=== PATIENT | male | born 1960 | race Caucasian/White ===

== ENCOUNTER 2020-07-14 06:29 | Inpatient (IN) ==
--- NOTE | 2020-06-29 07:49 | ANES ---
Anesthesia Pre Procedure Eval HOME MEDICATIONS cetirizine 10 mg tablet 10 mg PO DAILY PRN #30 tab 02/18/18 [Last Taken Unknown] topiramate 50 mg tablet 75 mg PO BID #270 tab 03/02/20 [Last Taken Unknown] sertraline 100 mg tablet 100 mg PO DAILY #90 tab 03/16/20 [Last Taken Unknown] celecoxib 200 mg capsule 200 mg PO BID #60 cap 05/18/20 [Last Taken Unknown] lisinopril 10 mg tablet 10 mg PO DAILY tab 06/28/20 [Last Taken Unknown] metformin 500 mg tablet 1,000 mg PO DAILY tab 06/28/20 [Last Taken Unknown] Allergies/Adverse Reactions: Allergies Allergy/AdvReac Type Severity Reaction Status Date / Time No Known Allergies Allergy Verified 06/28/20 11:33 - Planned Procedure Planned Procedure: Left Arthroplasty Total Hip Medication List Reviewed:: Yes Allergies Verified: Yes Medical History (Last Reviewed 06/29/20 @ 07:45 by Angel Buitrago CRNA) COVID-19 vaccine administered (Acute) Encounter for annual physical exam (Acute) Encounter for vision screening (Acute) R: L: B: Correction: Y Essential hypertension (Chronic) Anxiety associated with depression (Chronic) Joint stiffness (Chronic) Joint pain (Chronic) MULTIPLE JOINTS Migratory polyarthritis (Chronic) Screening for depression (Acute) PHQ 9: 7 Has received influenza vaccination in current influenza season (Acute) Onset Date: 06/28/18 Anxiety and depression Onset Date: Unknown Dislocation of right patella Onset Date: ~1975 Hyperlipidemia Onset Date: ~1997 IFG (impaired fasting glucose) Onset Date: ~2004 Knee pain, left Onset Date: ~1993 Migraine Onset Date: ~2005 Seasonal allergies Onset Date: ~2011 Viral meningitis Onset Date: ~04/2005 History of stress test Onset Date: ~2016 2--treadmill first then pharmacological Surgical History (Last Reviewed 06/29/20 @ 07:46 by Angel Buitrago CRNA) History of adenoidectomy Onset Date: ~1969 History of arthroscopy of left knee Onset Date: ~2006 also 2004 History of colonoscopy Onset Date: ~08/2015 History of hammer toe correction Onset Date: 11/16/16 Left 2 and 3--Dr. Sue [facility] History of meniscectomy of left knee Onset Date: ~03/2007- left knee 2003- partial lateral left knee History of removal of cyst Onset Date: ~2001 History of shoulder surgery Onset Date: ~2004 Right shoulder. Severe impingement syndrome and rotator cuff tear History of tonsillectomy Onset Date: ~1969 History of vasectomy Onset Date: ~1989 Hx laparoscopic cholecystectomy Onset Date: 04/27/19 Dr Mata Family History (Last Reviewed 06/29/20 @ 07:46 by Angel Buitrago CRNA) Father , @ 80 yo Alzheimers disease Diabetes Myocardial infarction 4 vessel CABG Hypertension Cancer basal cell Mother Hypertension Diabetes A-fib CHF (congestive heart failure) Kidney disease Sister Cancer, Onset Age: 30 melanomas Pituitary tumor - Family Anesthesia History Family History:: no untoward family reactions to anesthesia, no familial bleeding tendencies, no family history of clotting disorders, no family history of premature - Airway/Neck/Teeth Within Normal Limits:: Yes Teeth Condition: intact Denture Type: Perm crown/bridge Neck Exam: full range of motion Mallampatti Score: 3 Thyromental (T-M) distance: > 6 cm Mandibulo Hyoid distance: > 3 cm - Respiratory Respiratory Physical: lungs clear Smoking Status: Never smoker Sleep Apnea currently treated: No Sleep Apnea by current assessment: No - Although MP apature limited - Cardiovascular Cardiac History: hypertension Tolerate Activity: Fair Heart Sounds: S1 & S2, Regular - Gastrointestinal NPO since: 2400 except BP meds - Anesthesia Assessment and Plan ASA Class: PS, II Anesthesia Type Plan: Spinal
[~2020-07-14 06:29] MED LIST: MORPHINE SULFATE 15 MG TABLET.SA PO PRN; ROPIVACAINE/CLONIDIN/KETOROLAC 50 ML SYRINGE IJ PRN; TRANEXAMIC ACID 1,000 MG in NORMAL SALINE 100 ML IV PRN; ceFAZolin SODIUM 1 GM VIAL IV PRN
[2020-07-14] MEDS ORDERED: PROPOFOL VIAL IV ONE (06:58)
[2020-07-14] MEDS ORDERED: LIDOCAINE HCL 20 ML VIAL ONE (06:58)
[2020-07-14] MEDS ORDERED: BUPIVACAINE HCL/PF 10 ML VIAL ONE (06:58)
[2020-07-14] MEDS ORDERED: MIDAZOLAM HCL/PF 5 MG/ML VIAL ONE (07:01)
[2020-07-14] MEDS ORDERED: ROPIVACAINE/CLONIDIN/KETOROLAC 50 ML SYRINGE IJ ONE (07:02)
[2020-07-14] MEDS ORDERED: ISOPROPYL ALCOHOL 480 APPL BTL MC ONE (07:02)
[2020-07-14] MEDS ORDERED: ceFAZolin SODIUM 1 GM VIAL ONE (07:02)
[2020-07-14] MEDS: RINGER'S SOLUTION,LACTATED 1,000 ML IV PRN ×3 (07:10→09:55)
[2020-07-14] MEDS ORDERED: MAG HYDROX/ALUMINUM HYD/SIMETH 30 ML UDC PO PRN (09:18)
[2020-07-14] MEDS ORDERED: DEXTROSE 5%-LACTATED RINGERS 1,000 ML IV PRN (09:18)
[2020-07-14] MEDS ORDERED: ONDANSETRON HCL/PF 2 MG/ML VIAL IV PRN (09:18)
[2020-07-14] MEDS ORDERED: MORPHINE SULFATE 2 MG/ML DISP.SYRIN IV PRN (09:18)
[2020-07-14] MEDS ORDERED: MAGNESIUM HYDROXIDE 30 ML UDC PO PRN (09:18)
[2020-07-14] MEDS ORDERED: ZOLPIDEM TARTRATE 5 MG TABLET PO PRN (09:18)
[2020-07-14] MEDS ORDERED: ACETAMINOPHEN 500 MG TABLET PO PRN (09:18)
[2020-07-14] MEDS ORDERED: diphenhydrAMINE HCL 50 MG/ML VIAL IV PRN (09:18)
[2020-07-14] MEDS ORDERED: LORATADINE 10 MG TABLET PO PRN (09:21)
--- NOTE | 2020-07-14 09:24 | OR ---
Operative Report - Dictated Report Narrative: Date: 07/14/2020 Preoperative diagnosis: Left hip degenerative joint disease. Postoperative diagnosis: Left hip degenerative joint disease. Procedure: Left total hip arthroplasty. Surgeon: Antonino Barroso M.D. Hypercil Core Transformer Assembler: Joel Christina PA-C (provided an essential set of skilled, educated and assisted with transfer, positioning, prepping, draping, manipulation, traction, irrigation, suturing, and placement of dressings all of which cannot be performed by the available surgical crew) Anesthesia: Spinal and local periarticular joint injection. Complications: None Specimens: Bone. Estimated blood loss: 100 milliliters. Retained implants: Depuy [place] size 5 femoral stem high offset. Size 56 millimeter outside diameter 3-hole [place] Gription acetabular cup. 56 millimeter outside by 36 millimeter inside diameter highly cross-linked acetabular liner. 36 millimeter diameter +5 millimeter ceramic femoral head. Cancellous 6.5mm screw 30 millimeter length Indications: Mr. Rice is a 60-year-old gentleman who has had longstanding left hip pain and arthrosis. This patient was followed in my clinic for period of time with significant complaints of left hip pain consistent with arthritic changes. He failed conservative measures including but not limited to activity modification, passage of time, medications, and other conservative measures. Patient wished to proceed with surgical treatment. The risks, benefits, and alternatives were discussed in clinic. The risks of , blood clots, bleeding, infection, nerve/tendon blood vessel/ injury, malposition of components, dislocation and/or instability of joint, intraoperative fracture, postoperative limited range of motion, persistent pain, failure of components, and need for additional procedures. Patient wished to proceed. Consent was obtained after answering all questions. Procedure: After marking the correct extremity on the floor, the patient was taken to the operating room. A timeout was performed. IV antibiotics consisting of Ancef were administered prior to the procedure. A spinal anesthetic was induced by anesthesia. A Lake catheter was inserted. The patient was then transitioned to a lateral position on a well-padded pegboard. An axillary roll was placed. The head was in neutral position. The non- operative down leg was well-padded with SCD and ALBERTO hose in place. The arms were supported and padded to protect from any undue pressure on the bony prominences and nerves. A well-padded anterior and posterior pelvic and chest posts were secured in order to maintain a stable position of the pelvis. This was placed so that the pelvis was perpendicular to the floor. The body was in line with the pelvis. Once it was felt that we had protected all the bony prominences and the patient was well secured with a safety belt as well, the leg was pre-scrubbed with alcohol, prepped and draped in a standard sterile fashion. A standard anterior lateral hip incision was marked out over the greater trochanter. Ioban drapes were then placed. The skin incision was then made. Sharp dissection with a scalpel utilizing cautery for hemostasis was carried out down to the gluteus and iliotibial band fascia. This was split in line with the skin incision. The greater trochanter bursa was excised. The anterior and posterior margins of the abductor tendon were identified. The anterior 1/2-1/3 of the tendon was tagged and reflected off the greater trochanter leaving a sleeve of tendon for repair at the completion of the case. This exposed the underlying hip joint capsule. An inverted T-type capsulotomy was made extending this up to the brim of the acetabulum. Using Homans to assist with elevation of the soft tissues off the anterior, superior, and inferior aspects of the femoral neck, the hip was then placed in a figure 4 position and the femoral head was dislocated. With the leg in an externally rotated and adducted position, the cutting flag was utilized in order to gloria for a standard femoral neck cut approximately a fingerbreadth above the level of the lesser trochanter. This was done with reference to pre-operative films and overall alignment. This was done while protecting the surrounding soft tissues with Homans. The femoral head was then removed and sized for guidance on preparation of the acetabulum. It was noted that there was loss of articular cartilage on both the femoral head and weightbearing portions of the acetabulum. We then returned the leg to the table and turned our attention to the acetabulum. While protecting the surrounding soft tissues, the labrum and remaining tissue in the fovea were excised using a scalpel and cautery. A series of reamers up to size 56 millimeter were utilized to prepare the acetabulum. The final reamer had good purchase and exposed the bleeding subchondral bone. The acetabulum was then thoroughly irrigated ensuring that all bony and cartilaginous materials were removed, and the final acetabular shell was impacted into place. This was placed in approximately 45 degrees of abduction and 20 degrees of anteversion utilizing the outrigger and body axis for alignment. This had a good press fit. 1 6.5mm cancellous screw was placed in the superior posterior quadrant of the acetabulum. The shell was then thoroughly irrigated and the final polyethylene was impacted into place ensuring that it seated completely. This was then protected with a sponge while we returned our attention to the femur. With the leg in a figure 4 position, utilizing Homans for soft tissue protection, a box cutting osteotome, followed by Charnley awl, followed by serial reamers and broaches were utilized in order to prepare the femur. It was found that a size 5 broach gave good axial and rotational stability. The calcar reamer was utilized in order to clean up the cut edges. The proximal femur was visualized to ensure that there were no signs of fracture. A series of heads and necks were trialed. It was found that a high offset neck and a + 5 femoral head gave good overall stability. There was minimal longitudinal instability. With the leg in the position of sleep, the femoral head was well covered. Hip range of motion was able to reach full extension and external rotation to greater than 75 degrees prior to impingement along the posterior acetabulum. The hip was able to be flexed to greater than 90 degrees with internal rotation greater than 60 degrees prior to anterior impingement. The limb lengths were near equal based on comparison to the contralateral side and the prior placed limb length stitch. At this point it was felt these were the appropriately sized femoral components as well as neck and femoral head. The trial implants were removed. The femur was thoroughly irrigated. The final implants were impacted into place, and the hip was reduced. After ensuring that there was no damage to the proximal femur, the standard periarticular joint injection of ropivacaine, Toradol, and epinephrine were injected into the joint capsule and surrounding soft tissues. Anesthesia then administered intravenous tranexamic acid. The capsule was repaired with a single interrupted #1 Vicryl. The abductor tendon was repaired to the greater trochanter utilizing #5 Ethibond through drill holes. This was oversewn with #1 Vicryl. The fascia was closed with interrupted #1 Vicryl and #1 Stratafix barbed suture. The wounds were thoroughly irrigated as we closed in layers. The deep and subcutaneous fat layers were closed with 0 and 3-0 Vicryl respectively. The subcutaneous tissue was closed with a running 3-0 Vicryl and the skin frankie. All sponge, needle, blade, and instrument counts were correct prior to closing the wounds. Sterile dressings consisting of xeroform, 4 x 4's, and tape were applied. The patient was awoken and transferred to her hospital bed and then to the postanesthesia care unit in stable condition. Postoperative condition: The plan is to admit to the medical/surgical inpatient floor postoperatively. There will be a projected 1 to 3 day hospital stay. Postoperatively 24 hours of IV antibiotics, pain control, physical therapy, occupational therapy, and medical comanagement will be utilized. Patient will be weightbearing as tolerated with anterior hip precautions. Postoperative films will be obtained in the recovery room.
[2020-07-14] MEDS: KETOROLAC TROMETHAMINE 15 MG/ML VIAL IV SCH ×3 (10:43→20:41)
[2020-07-14] MEDS: ceFAZolin SODIUM 1 GM in DEXTROSE 5 % IN WATER 100 ML IV SCH ×6 (11:37→23:42)
--- NOTE | 2020-07-14 12:24 | ANES ---
Post Anesthesia Discharge - Transfer of Care Transfer of Care handoff given to nurse: Yes - Discharge from PACU Discharge from PACU when meets criteria: Yes
--- NOTE | 2020-07-14 12:24 | ANES ---
Post Anesthesia Assessment - Vital Signs Vitals: Last Vital Signs Temp 35.8 C L 07/14/20 11:30 Pulse 70 07/14/20 11:30 Resp 16 07/14/20 11:30 BP 115/63 07/14/20 11:30 Pulse Ox 99 07/14/20 11:30 Airway Patency: Normal - Mental Status Level Of Consciousness: Awake - Pain Level Pain Score: 0 - N/V Assessment Nausea/Vomiting Presence: None Dehydration:: No
[2020-07-14] MEDS ORDERED: NORMAL SALINE 1,000 ML IV ONE (14:00)
[2020-07-14] MEDS: oxyCODONE HCL/ACETAMINOPHEN 1 TAB TABLET PO PRN ×2 (17:01→22:14)
[2020-07-14] MEDS: MORPHINE SULFATE 15 MG TABLET.SA PO SCH (20:12)
[2020-07-14] MEDS: TOPIRAMATE 50 MG TABLET PO SCH (20:13)
[2020-07-14] MEDS ORDERED: SENNOSIDES/DOCUSATE SODIUM 1 TAB TABLET PO SCH (21:00)
[2020-07-15] MEDS: KETOROLAC TROMETHAMINE 15 MG/ML VIAL IV SCH ×2 (03:04→09:06)
[2020-07-15] MEDS: oxyCODONE HCL/ACETAMINOPHEN 1 TAB TABLET PO PRN ×4 (03:08→16:03)
[2020-07-15 06:18] LABS: Hematocrit 40.9 % (42.0-52.0); Mean Corpuscular Hgb Conc 31.8 g/dl (32-36); Mean Platelet Volume 9.2 fl (8-11.3); Platelet Count 193 K/mm3 (150-450); Red Blood Count 4.65 M/mm3 (4.7-6.0); Red Cell Distribution Width 14.6 % (11.5-14.0)
[2020-07-15 06:27] LABS: Anion Gap 9.5 mmol/L (6.8-13.8); BUN/Creatinine Ratio 14.6 (9.0-21.6); Blood Urea Nitrogen 18 mg/dL (6-23); Calcium * 8.3 mg/dL (7.9-10.9); Carbon Dioxide 28.8 mmol/L (24-32.6); Chloride 107 mmol/L (97-106); Glucose * 135 mg/dL (70-110); Potassium 4.3 mmol/L (3.4-4.6); Sodium 141 mmol/L (132-142)
[2020-07-15] MEDS ORDERED: ENOXAPARIN SODIUM 40 MG/0.4 ML SYRG SC SCH (08:19)
[2020-07-15] MEDS ORDERED: LISINOPRIL 10 MG TABLET PO SCH (09:00)
[2020-07-15] MEDS ORDERED: SERTRALINE HCL 100 MG TABLET PO SCH (09:00)
[2020-07-15] MEDS: TOPIRAMATE 50 MG TABLET PO SCH (09:04)
[2020-07-15] MEDS: MORPHINE SULFATE 15 MG TABLET.SA PO SCH (09:04)
--- NOTE | 2020-07-15 10:12 | DS ---
(1) Status post left hip replacement Problem: Acute (2) Anxiety associated with depression Problem: Chronic (3) Diabetes mellitus type 2, controlled, without complications Problem: Chronic Qualifiers: (4) Essential hypertension Problem: Chronic (5) Migratory polyarthritis Problem: Chronic Hospital Course: Mr. Rice was admitted to the floor after undergoing left total hip arthroplasty. Tolerated this well. Was admitted to the floor postoperatively for 24 hours of IV antibiotics, pain control, medical comanagement, and occupati onal and physical therapy. OT and PT were consulted to assist with activities of daily living and ambulation. Was made weightbearing as tolerated with anterior hip precautions. Pain was initially controlled with IV regimen. This was transitioned to oral once tolerating a by mouth intake. Was resumed on home diet and medications. A Lake catheter was inserted in the operating room which was discontinued by postoperative day 1. Lovenox, SCDs, and ALBERTO hose were utilized for DVT prophylaxis. Vital signs remained stable to the hospital course. Labs were obtained which showed a final hemoglobin of 13 grams. BMP was reviewed and was stable. Physical examination throughout the hospital course showed an extremity that had sensation that was intact to light touch, palpable pulses, a benign wound, motor intact to the toes, ankle, and knee. Once an oral pain regimen was tolerated and physical therapy goals were met, it was felt that they were stable for discharge to home. Instructions: Continue with weightbearing as tolerated and anterior hip precautions. Do not bathe or soak the wound. Keep the wound clean and dry and cover with dry gauze and tape. Change every 2-3 days as needed if there is any drainage. Cover wound while showering. Continue with physical therapy. Resume home diet. Report any fever over 101.5 Fahrenheit, uncontrolled pain, increased drainage, foul odor of drainage, new or increased calf pain or shortness of breath, or any other significant complaints. A 325mg daily aspirin will be started after finishing anticoagulation if not allergic. Continue with ALBERTO hose on the operative extremity until instructed otherwise. No driving until instructed otherwise. Follow up in approximately 2-3 weeks. Procedures Performed: see notes below List Procedures: Left total hip arthroplasty Results and Findings: Lab Pending Results 07/15/20 06:15: WBC 9.0, RBC 4.65 L, Hgb 13.0 L, Hct 40.9 L, MCV 88.0, MCH 28.0, MCHC 31.8 L, RDW 14.6 H, Plt Count 193, MPV 9.2 07/15/20 06:15: Sodium 141, Plasma Sodium 142, Potassium 4.3, Chloride 107 H, Carbon Dioxide 28.8, Anion Gap 9.5, BUN 18, Creatinine 1.23, Est GFR (Non-Af Amer) 64, BUN/Creatinine Ratio 14.6, Random Glucose 135 H, Calcium 8.3 Disposition: Home self-care Condition: Good Discharge Activity: Weight bearing, Other - Anterior hip precautions no active abduction Discharge Diet: Consistent carbs Referrals: Guerita Strong MD [Primary Care Provider] - Additional Patient Instructions (free text): Follow up Physical Therapy at [facility] outpatient rehab on SaturdayJuly 18 at 11:00am. Follow up [facility] Orthopedic office appointment on July 28 at 9:45am. Prescriptions (Any new or edited meds): Enoxaparin Sodium [Lovenox] 40 mg SC Q24H #7 disp.syrin Transmission Status: Pending to [facility] Morphine Sulfate [Ms Contin] 15 mg PO Q12H #10 tablet.sa Transmission Status: Sent to [facility] oxyCODONE HCL/ACETAMINOPHEN [Percocet 5 MG/325 MG] 1 - 2 tab PO Q4H PRN #50 tab PRN Reason: Moderate Pain (Pain Scale 4-6) Transmission Status: Sent to [facility] Sennosides/Docusate Sodium [Senokot-S] 2 tab PO HS #60 tab Transmission Status: Pending to [facility] Complete Home Medications List: Complete Home Medication List: cetirizine 10 mg tablet 10 mg PO DAILY PRN #30 tab 02/18/18 topiramate 50 mg tablet 75 mg PO BID #270 tab 03/02/20 sertraline 100 mg tablet 100 mg PO DAILY #90 tab 03/16/20 celecoxib 200 mg capsule 200 mg PO BID #60 cap 05/18/20 metformin 500 mg tablet 1,000 mg PO DAILY tab 06/28/20 lisinopril 10 mg tablet 10 mg PO DAILY #90 tab 06/29/20 Enoxaparin Sodium [Lovenox] 40 mg SC Q24H #7 disp.syrin 07/15/20 Morphine Sulfate [Ms Contin] 15 mg PO Q12H #10 tablet.sa 07/15/20 Sennosides/Docusate Sodium [Senokot-S] 2 tab PO HS #60 tab 07/15/20 oxyCODONE HCL/ACETAMINOPHEN [Percocet 5 MG/325 MG] 1 - 2 tab PO Q4H PRN #50 tab 07/15/20 Amb Orders for Discharge: PT Evaluation and Treatment* Facility: [facility], Location: Rehabilitation Services
[2020-07-15 16:50] VITALS: BP 124/66
== END 2020-07-15 17:15 | disposition home or self-care (01) | DRG 470 ==
LOC: MS 06:29
PROVIDERS: ADMIT Orthopaedic Surgery; ATTEND Orthopaedic Surgery

== ENCOUNTER 2020-10-31 07:22 | Inpatient (IN) ==
[~2020-10-31 07:22] MED LIST changes: -TRANEXAMIC ACID 1,000 MG in NORMAL SALINE 100 ML IV PRN; +TRANEXAMIC ACID IN NACL,ISO-OS 1,000 MG/100 ML BAG IV PRN
[2020-10-31] MEDS: RINGER'S SOLUTION,LACTATED 1,000 ML IV PRN ×3 (07:51→10:45)
[2020-10-31] MEDS ORDERED: BUPIVACAINE HCL/EPINEPHRINE 50 ML VIAL IJ ONE (09:00)
[2020-10-31] MEDS ORDERED: MIDAZOLAM HCL/PF 5 MG/ML VIAL ONE (09:01)
[2020-10-31] MEDS ORDERED: PROPOFOL VIAL IV ONE (09:01)
[2020-10-31] MEDS ORDERED: BUPIVACAINE HCL/PF 10 ML VIAL ONE (09:02)
--- NOTE | 2020-10-31 09:21 | ANES ---
Anesthesia Pre Procedure Eval Vitals/Labs: Last Vital Signs Temp 36.7 C 10/31/20 07:30 Pulse 80 10/31/20 07:30 Resp 14 10/31/20 07:30 BP 139/75 10/31/20 07:30 Pulse Ox 97 10/31/20 07:30 HOME MEDICATIONS cetirizine 10 mg tablet 10 mg PO DAILY PRN #30 tab 02/18/18 [Last Taken Unknown] topiramate 50 mg tablet 75 mg PO BID #270 tab 03/02/20 [Last Taken 07/13/20] lisinopril 10 mg tablet 10 mg PO DAILY #90 tab 06/29/20 [Last Taken 07/13/20] metformin 500 mg tablet 1,000 mg PO DAILY #180 tab 09/12/20 [Last Taken Unknown] sertraline 100 mg tablet 100 mg PO DAILY #90 tab 09/12/20 [Last Taken Unknown] Allergies/Adverse Reactions: Allergies Allergy/AdvReac Type Severity Reaction Status Date / Time No Known Allergies Allergy Verified 10/31/20 07:53 - Planned Procedure Planned Procedure: Arthroplasty LT Total Knee Medication List Reviewed:: Yes Allergies Verified: Yes Medical History (Last Reviewed 10/31/20 @ 09:20 by Michele Lee CRNA) COVID-19 vaccine administered (Acute) Encounter for annual physical exam (Acute) Encounter for vision screening (Acute) R: L: B: Correction: Y Essential hypertension (Chronic) Anxiety associated with depression (Chronic) Joint stiffness (Chronic) Joint pain (Chronic) MULTIPLE JOINTS Migratory polyarthritis (Chronic) Screening for depression (Acute) PHQ 9: 7 Has received influenza vaccination in current influenza season (Acute) Onset Date: 06/28/18 Anxiety and depression Onset Date: Unknown Dislocation of right patella Onset Date: ~1975 Hyperlipidemia Onset Date: ~1997 IFG (impaired fasting glucose) Onset Date: ~2004 Knee pain, left Onset Date: ~1993 Migraine Onset Date: ~2005 Seasonal allergies Onset Date: ~2011 Viral meningitis Onset Date: ~04/2005 Wears contact lenses History of stress test Onset Date: ~2016 2--treadmill first then pharmacological Surgical History (Last Reviewed 10/31/20 @ 09:20 by Michele Lee CRNA) Hx of total hip arthroplasty Onset Date: ~07/14/20 Procedure: Left total hip arthroplasty. 07-14-20 Dr. Barroso History of adenoidectomy Onset Date: ~1969 History of arthroscopy of left knee Onset Date: ~2006 also 2004 History of colonoscopy Onset Date: ~08/2015 History of hammer toe correction Onset Date: 11/16/16 Left 2 and 3--Dr. Sue [facility] History of meniscectomy of left knee Onset Date: ~03/2007- left knee 2003- partial lateral left knee History of removal of cyst Onset Date: ~2001 neck History of shoulder surgery Onset Date: ~2004 Right shoulder. Severe impingement syndrome and rotator cuff tear History of tonsillectomy Onset Date: ~1969 History of vasectomy Onset Date: ~1989 Hx laparoscopic cholecystectomy Onset Date: 04/27/19 Dr Mata Family History (Last Reviewed 10/31/20 @ 09:20 by Michele Lee CRNA) Father , @ 80 yo Diabetes Alzheimers disease Myocardial infarction 4 vessel CABG Cancer basal cell Hypertension Mother Diabetes CHF (congestive heart failure) A-fib Kidney disease Hypertension Sister Pituitary tumor Cancer, Onset Age: 30 melanomas and thyroid - Family Anesthesia History Family History:: no untoward family reactions to anesthesia - Airway/Neck/Teeth Within Normal Limits:: Yes Teeth Condition: intact Neck Exam: full range of motion Mallampatti Score: 2 Thyromental (T-M) distance: > 6 cm Mandibulo Hyoid distance: > 3 cm - Respiratory Respiratory Physical: lungs clear Smoking Status: Never smoker Sleep Apnea currently treated: No Sleep Apnea by current assessment: No - Cardiovascular Cardiac History: hypertension Tolerate Activity: Fair Heart Sounds: S1 & S2, Regular - Gastrointestinal NPO since: mn - Anesthesia Assessment and Plan ASA Class: PS, II Anesthesia Type Plan: Spinal - adductor canal block Planned difficult intubation/equipment available: No
[2020-10-31] MEDS ORDERED: ROPIVACAINE/CLONIDIN/KETOROLAC 50 ML SYRINGE IJ ONE (09:45)
[2020-10-31] MEDS ORDERED: ceFAZolin SODIUM 1 GM VIAL ONE (09:45)
[2020-10-31] MEDS ORDERED: ONDANSETRON HCL/PF 2 MG/ML VIAL IV PRN (11:11)
[2020-10-31] MEDS ORDERED: MAG HYDROX/ALUMINUM HYD/SIMETH 30 ML UDC PO PRN (11:11)
[2020-10-31] MEDS ORDERED: MAGNESIUM HYDROXIDE 30 ML UDC PO PRN (11:11)
[2020-10-31] MEDS ORDERED: ACETAMINOPHEN 500 MG TABLET PO PRN (11:11)
[2020-10-31] MEDS ORDERED: MORPHINE SULFATE 2 MG/ML DISP.SYRIN IV PRN (11:11)
[2020-10-31] MEDS ORDERED: RINGER'S SOLUTION,LACTATED 1,000 ML IV PRN (11:11)
[2020-10-31] MEDS ORDERED: ZOLPIDEM TARTRATE 5 MG TABLET PO PRN (11:11)
--- NOTE | 2020-10-31 11:11 | OR ---
Operative Report - Dictated Report Narrative: Date: 10/31/2020 Preoperative diagnosis: Left knee degenerative joint disease. Postoperative diagnosis: Left knee degenerative joint disease. Procedure: Left total knee arthroplasty. Surgeon: Antonino Barroso M.D. Automotive Quality Manager: August Eaton PA-C (provided and essential set of skilled, educated hands that assisted with transfer, positioning, prepping, draping, manipulation, retraction, placement of jigs, injection, insertion of implants, irrigation, closure wounds, and dressings all of which could not be performed by the available surgical crew) Anesthesia: Spinal with regional block and local periarticular joint injection. Complications: None Specimens: Bone. Estimated blood loss: Minimal. Tourniquet time: 90 minutes at 325 millimeters of mercury. Retained implants: Depuy Attune size 7 left lugged cemented posterior stabilized femoral component. Size 7 fixed-bearing cemented tibial platform. 7 by 5 millimeter posterior stabilized cross-linked tibial insert. 41 millimeter medialized patella button. Indications: Mr. Rice is a 60-year-old gentleman who has had longstanding left knee pain and arthrosis. This patient was followed in my clinic for period of time with significant complaints of left knee pain consistent with arthritic changes. He had failed conservative measures including, but not limited to, activity modification, passage of time, medications, and other conservative measures. Patient wished to proceed with surgical treatment. The risks, benefits, and alternatives were discussed in clinic. The risks of , blood clots, bleeding, infection, nerve/tendon blood vessel/ injury, malposition of components, intraoperative fracture, postoperative limited range of motion, persistent pain, failure of components, and need for additional procedures. Patient wished to proceed consent was obtained after answering all questions. Procedure: After marking the correct extremity on the floor, the patient was taken to the operating room. A timeout was performed. IV antibiotics consisting of Ancef were administered prior to the procedure. A regional followed by spinal anesthetic was induced by anesthesia, per my request, on the operative table with all bony prominences well-padded. Lake catheter was placed, and a bump was placed under the operative side buttock. SCDs and ALBERTO hose were utilized on the nonoperative leg. A well-padded tourniquet was applied to the operative thigh. The operative leg was then pre-scrubbed with alcohol, prepped, and draped in a standard sterile fashion. After exsanguinating the extremity with an Esmarch bandage, the tourniquet was inflated. After marking out the anterior knee for standard incision centered over the patella, the skin was incised and dissected down to the joint retinaculum. The joint retinaculum was marked out as well as the horizontal axis of the patella, and a standard medial parapatellar arthrotomy was then made. The most proximal aspect of the quadriceps tendon and the patella tendon insertion were protected from release. A partial synovectomy was performed as well as a resection of the infrapatellar fat pad. The distal femoral fat pad proximal to the trochlea was also resected using cautery. The soft tissues were elevated off the medial aspect of the proximal tibia using a Pickering elevator ensuring that we did not transect the medial collateral ligament. Upon initial evaluation range of motion was approximately 0 degrees to 130 degrees of flexion. There were signs of advanced arthrosis in the lateral and patellofemoral greater than medial joint spaces. There were large marginal osteophytes which were removed with a rongeur. The knee was hyperflexed and the patella was tucked laterally. Protecting the surrounding soft tissues with Homans, an entry drill was placed down the femoral canal using Whitesides line for guidance into the entry point. The intramedullary femoral alignment zachary was utilized in order to cut the distal femur in 5 degrees of valgus resecting 10 millimeters of bone. Next the distal femur was sized to a size 7. A posterior referencing guide was utilized to place the distal femoral cutting block in 3 degrees of external rotation. This was pinned into place. The rotation was confirmed both visually and based on anatomic landmarks. The 4 in 1 cutting jig of the appropriate size was utilized in order to make all bony cuts. The toma wing was used to ensure no notching. Retractors were utilized in order to protect surrounding soft tissues. This cut did not result in any excessive notching. We then cut the box centered over the distal femur. This allowed for resection of the anterior and posterior cruciate ligaments. I then turned my attention to the preparation of the tibia. Using an extra medullary tibial alignment zachary, 6 millimeters of bone was resected off the medial articular surface. This was made perpendicular to the mechanical axis of the joint with the alignment zachary centered over the ankle mortise. The alignment zachary was checked and was noted to be parallel to the mechanical axis, centered over the medial one third of the tibial tubercle, paralleling the anterior surface of the tibia. We then turned our attention to the remaining meniscus and soft tissues. These were removed while protecting the surrounding ligaments and soft tissues. The marginal osteophytes off the anterior, posterior, medial, lateral aspects of the femur and tibia were removed. The tibia was sized out to a size 7. Next the tibia was drilled and punched in an externally rotated position. Next the trial femur and a series of tibial inserts were utilized in order to allow for full extension and maximal flexion. It was found that a 5 millimeter insert gave the best range of motion and stability at multiple flexion points as well as at full extension there was less than 2 mm of gapping both medially and laterally. There is minimal anterior translation with the knee at 90 degrees of flexion and no signs of being able to dislocate the knee. The patella was then prepared. The initial thickness was 26 millimeters. This was reamed down to 16 millimeters parallel to the anterior surface of the patella. It was sized out to a size 41 medialized patella button. This was then drilled and trialed. Without any medial restraint the patella tracked appropriately and did not sublux or dislocate. At this point, it was felt these were the appropriate sized implants, and all trials were removed. The standard periarticular joint injection consisting of ropivacaine, Toradol, and epinephrine were injected into the periarticular joint tissues. The bony surfaces were thoroughly irrigated with a pulsatile-suction saline irrigation device. A bone plug from the prior resected anterior chamfer cut was placed into the drill hole at the distal femur. The bony surfaces were then dried in preparation for placement of the implants. The cement was vacuum mixed per the coal conveyor operator's instructions. The cement was placed on the dry bony surfaces and posterior aspect of the implants. The implants were impacted into place, removing all extruded cement. At this point anesthesia administered tranexamic acid per protocol intravenously. The knee was placed in extension with axial loading with the trial insert while the cement cured. Once the cement cured, all remaining extruded cement was removed. The knee was placed through a range of motion with the trial insert to ensure appropriate range of motion and stability. Final range of motion was approximately 0 to 130 degrees. The knee was again thoroughly irrigated with pulsatile saline lavage. The final polyethylene insert was then impacted into place ensuring no retained soft tissues. The remaining periarticular joint injection was injected. A medium Hemovac drain was placed exiting superior laterally. The knee was then placed over a triangle and the arthrotomy was closed with interrupted #1 Vicryl after thoroughly irrigating the joint. The deep and subcutaneous tissues were closed with interrupted 0 and 3-0 Vicryl respectively. Skin was closed with a running subcutaneous 3-0 Monocryl and Prineo Dermabond dressing. 4 x 4's, Sof-Rol, and a full leg Troy wrap were applied. All sponge, needle, blade, and instrument counts were correct prior to closing the wounds. Postoperative condition: The patient was awoken and transferred to the postanesthesia care unit in stable condition. Plan is to be admitted to the inpatient medical/surgical floor postoperatively for 24 hours of IV antibiotics, physical therapy, occupational therapy, and medical comanagement. Patient will be weightbearing as tolerated with range of motion as tolerated. DVT prophylaxis will be with SCDs, ALBERTO hose, and pharmacological anticoagulation. Anticipated hospital stay is approximately 1-3 days.
[2020-10-31] MEDS ORDERED: LORATADINE 10 MG TABLET PO PRN (11:13)
--- NOTE | 2020-10-31 11:58 | ANES ---
Post Anesthesia Assessment - Vital Signs Vitals: Last Vital Signs Temp 36.7 C 10/31/20 11:50 Pulse 85 10/31/20 11:50 Resp 14 10/31/20 11:50 BP 106/55 10/31/20 11:50 Pulse Ox 96 10/31/20 11:50 Airway Patency: Normal - Mental Status Level Of Consciousness: Awake - Pain Level Pain Score: 0 - N/V Assessment Nausea/Vomiting Presence: None Dehydration:: No
--- NOTE | 2020-10-31 11:58 | ANES ---
Post Anesthesia Discharge - Transfer of Care Transfer of Care handoff given to nurse: Yes - Discharge from PACU Discharge from PACU when meets criteria: Yes
[2020-10-31] MEDS: KETOROLAC TROMETHAMINE 15 MG/ML VIAL IV SCH ×3 (12:09→23:31)
[2020-10-31] MEDS: ceFAZolin SODIUM 1 GM in DEXTROSE 5 % IN WATER 100 ML IV SCH ×4 (12:12→18:43)
--- NOTE | 2020-10-31 15:14 | ANES ---
Anesthesia Procedure Note Procedure Note: ANESTHESIA PROCEDURE NOTE Date of procedure: 10/31/2020. Time of procedure: . Performed by: Elvin Lee CRNA Nursery Supervisor: Cynthia Garcia RN . Preprocedure diagnosis: Left knee DJD. Post procedure diagnosis: Same. Procedure: Ultrasound-guided left adductor canal block Indications: Postoperative analgesia. Findings: Patient brought to operating room #2, sedated, and given a spinal anesthetic. The patient's left inner thigh was prepped with ChloraPrep. Ultrasound utilized to identify the saphenous nerve in the left adductor canal. A 20-gauge 4 inch regional block needle was advanced under ultrasound guidance until tip of needle was placed just proximally to saphenous nerve. 30 mL of 0.25% Marcaine with epinephrine 1-200,000 was injected with adequate spread of local anesthesia noted around the nerve. Regional block needle was removed intact. EBL: Minimal. Fluids: N/A. Specimen: N/A. Post procedure condition: The patient tolerated the procedure well. No complications were noted. Thank you for this consultation Elvin Lee CRNA
[2020-10-31] MEDS: oxyCODONE HCL/ACETAMINOPHEN 1 TAB TABLET PO PRN ×2 (17:07→23:27)
[2020-10-31] MEDS: diphenhydrAMINE HCL 50 MG/ML VIAL IV PRN ×2 (18:47→23:26)
[2020-10-31] MEDS: TOPIRAMATE 50 MG TABLET PO SCH (20:29)
[2020-10-31] MEDS: MORPHINE SULFATE 15 MG TABLET.SA PO SCH (20:30)
[2020-10-31] MEDS: ASPIRIN 81 MG TABLET.DR PO SCH (20:30)
[2020-10-31] MEDS ORDERED: SENNOSIDES/DOCUSATE SODIUM 1 TAB TABLET PO SCH (21:00)
[2020-11-01] MEDS: ceFAZolin SODIUM 1 GM in DEXTROSE 5 % IN WATER 100 ML IV SCH ×2 (00:16)
[2020-11-01] MEDS: KETOROLAC TROMETHAMINE 15 MG/ML VIAL IV SCH ×2 (05:16→10:45)
[2020-11-01] MEDS: diphenhydrAMINE HCL 50 MG/ML VIAL IV PRN ×3 (05:19→14:19)
[2020-11-01] MEDS: oxyCODONE HCL/ACETAMINOPHEN 1 TAB TABLET PO PRN ×3 (05:19→14:19)
[2020-11-01 06:24] LABS: Hematocrit 40.9 % (42.0-52.0); Hemoglobin 12.9 gm/dL (13.5-18.0); Mean Cell Volume 86.1 fl (78-100); Mean Corpuscular Hemoglobin 27.2 pg (27-31); Mean Corpuscular Hgb Conc 31.5 g/dl (32-36); Mean Platelet Volume 8.9 fl (8-11.3); Platelet Count 205 K/mm3 (150-450); Red Blood Count 4.75 M/mm3 (4.7-6.0)
[2020-11-01 06:30] LABS: Anion Gap 11.4 mmol/L (6.8-13.8); Calcium * 8.1 mg/dL (7.9-10.9); Estimated Creat Clear 85.3; Potassium 4.4 mmol/L (3.4-4.6)
[2020-11-01] MEDS ORDERED: SERTRALINE HCL 100 MG TABLET PO SCH (09:00)
[2020-11-01] MEDS ORDERED: LISINOPRIL 10 MG TABLET PO SCH (09:00)
[2020-11-01] MEDS: TOPIRAMATE 50 MG TABLET PO SCH (09:02)
[2020-11-01] MEDS: ASPIRIN 81 MG TABLET.DR PO SCH (09:02)
[2020-11-01] MEDS: MORPHINE SULFATE 15 MG TABLET.SA PO SCH (09:06)
--- NOTE | 2020-11-01 14:55 | DS ---
(1) Status post left knee replacement Problem: Acute (2) Anxiety associated with depression Problem: Chronic (3) Diabetes mellitus type 2, controlled, without complications Problem: Chronic Qualifiers: (4) Essential hypertension Problem: Chronic (5) Migratory polyarthritis Problem: Chronic Date of Discharge:: 11/01/20 Hospital Course: Mr. Rice was admitted to the floor after undergoing left total knee arthroplasty. Tolerated this well. Was admitted to the floor postoperatively for 24 hours of IV antibiotics, pain control, medical comanagement, and occupational and physical therapy. OT and PT were consulted to assist with activities of daily living and ambulation. Was made weightbearing as tolerated with range of motion as tolerated. Pain was initially controlled with IV regimen. This was transitioned to oral once tolerating a by mouth intake. Was resumed on home diet and medications. A Lake catheter was inserted in the operating room which was discontinued by postoperative day 1. A drain was placed intraoperatively into the knee which was discontinued on postoperative day 1. Lovenox, SCDs, and ALBERTO hose were utilized for DVT prophylaxis. Vital signs remained stable to the hospital course. Labs were obtained which showed a final hemoglobin of 12.9 grams. BMP was reviewed and was stable. Physical examination throughout the hospital course showed an extremity that had sensation that was intact to light touch, palpable pulses, a benign wound, motor intact to the toes, ankle, and knee. Knee range of motion was approximately 5 degrees to 60 degrees. Once an oral pain regimen was tolerated and physical therapy goals were met, it was felt that they were stable for discharge to home. Instructions: Continue with weightbearing as tolerated and range of motion as tolerated. It is okay to shower and get the wound wet as long as there is no drainage from the wound. Do not bathe or soak the wound. If there is any drainage from the wound keep the wound clean and dry and cover with dry gauze and tape. Change every 2- 3 days as needed if there is any drainage. Cover wound while showering if there is any drainage. Continue with physical therapy. Resume home diet. Report any fever over 101.5 Fahrenheit, uncontrolled pain, increased drainage, foul odor of drainage, new or increased calf pain or shortness of breath, or any other significant complaints. Continue with ALBERTO hose on the operative extremity until instructed otherwise. No driving until instructed otherwise. Follow up in approximately 2-3 weeks. Procedures Performed: see notes below List Procedures: Left knee replacement Results and Findings: Lab Pending Results 11/01/20 06:13: WBC 9.0, RBC 4.75, Hgb 12.9 L, Hct 40.9 L, MCV 86.1, MCH 27.2, MCHC 31.5 L, RDW 14.0, Plt Count 205, MPV 8.9 11/01/20 06:13: Sodium 139, Plasma Sodium 139, Potassium 4.4, Chloride 106, Carbon Dioxide 26.0, Anion Gap 11.4, BUN 17, Creatinine 1.00, Est GFR (Non-Af Amer) 81, BUN/Creatinine Ratio 17.0, Random Glucose 129 H, Calcium 8.1 Disposition: Home self-care Condition: Good Discharge Activity: Activity as tolerated, Weight bearing Discharge Diet: Consistent carbs Referrals: Guerita Strong MD [Primary Care Provider] - Additional Patient Instructions (free text): [facility] outpatient Physical Therapy November 03 at 2:30 p.m. [facility] Orthopedic follow up appointment with Joel Christina SaturdayNovember 23 at 9:00 a.m. Prescriptions (Any new or edited meds): Morphine Sulfate [Ms Contin] 15 mg PO Q12H #10 tablet. Transmission Status: Sent to [facility] oxyCODONE HCL/ACETAMINOPHEN [Percocet 5 MG/325 MG] 1 - 2 tab PO Q4H PRN #50 tablet PRN Reason: Moderate Pain (Pain Scale 4-6) Transmission Status: Sent to [facility] Complete Home Medications List: Complete Home Medication List: cetirizine 10 mg tablet 10 mg PO DAILY PRN #30 tab 02/18/18 topiramate 50 mg tablet 75 mg PO BID #270 tab 03/02/20 lisinopril 10 mg tablet 10 mg PO DAILY #90 tab 06/29/20 metformin 500 mg tablet 1,000 mg PO DAILY #180 tab 09/12/20 sertraline 100 mg tablet 100 mg PO DAILY #90 tab 09/12/20 Aspirin [Aspirin Enteric Coated] 81 mg PO BID #90 tablet. 11/01/20 Morphine Sulfate [Ms Contin] 15 mg PO Q12H #10 tablet.sa 11/01/20 Sennosides/Docusate Sodium [Senokot-S] 2 tab PO HS #60 tab 11/01/20 oxyCODONE HCL/ACETAMINOPHEN [Percocet 5 MG/325 MG] 1 - 2 tab PO Q4H PRN #50 tab 11/01/20 Amb Orders for Discharge: PT Evaluation and Treatment* Facility: [facility], Location: Rehabilitation Services Forms: Patient Portal Registration
[2020-11-01 17:00] VITALS: BP 138/80
== END 2020-11-01 16:43 | disposition home or self-care (01) | DRG 470 ==
LOC: MS 07:22 → EDSTATUS 10:00
PROVIDERS: ADMIT Orthopaedic Surgery; ATTEND Orthopaedic Surgery